=== PATIENT | male | born 1990 | race Two or more races ===

== ENCOUNTER 2018-11-28 10:05 | Outpatient (CLI) | payer OTHER | END 2018-11-28 10:52 | disposition home or self-care (01) | LOC: SONOGRAMA 10:05 | DX: E04.2 Nontoxic multinodular goiter (principal) ==

== ENCOUNTER 2025-02-23 10:47 | Outpatient (CLI) | payer OTHER | END 2025-02-23 10:49 | disposition home or self-care (01) | LOC: SONOGRAMA 10:47 | PROVIDERS: ATTEND Pathology Anatomic Pathology | DX: D34 Benign neoplasm of thyroid gland (principal); E06.3 Autoimmune thyroiditis; E04.1 Nontoxic single thyroid nodule ==